=== PATIENT | male | born 1990 | race Two or more races ===

== ENCOUNTER 2018-03-13 11:39 | Outpatient (CLI) | payer OTHER ==
[~2018-03-13 11:39] MED LIST: ADDERALL 20 MG20 MG; BUDEPRION XL300 MG; SYNTHROID50 MCG
== END 2018-03-13 11:41 | disposition home or self-care (01) ==
LOC: SONOGRAMA 11:39
DX: E04.2 Nontoxic multinodular goiter (principal)

== ENCOUNTER 2018-04-16 09:14 | Outpatient (CLI) | payer OTHER ==
[~2018-04-16] VITALS: Ht 170.2 cm; Wt 95.3 kg
[2018-04-23] MEDS ORDERED: CALCIUM 500 +1 EAC2 PO (08:49)
[2018-04-23] MEDS ORDERED: CALCITRIOL0.25 MCG PO (08:50)
== END 2018-04-16 09:30 | disposition home or self-care (01) ==
LOC: OFIC 805 09:14
DX: J31.0 Chronic rhinitis (principal); R22.1 Localized swelling, mass and lump, neck; J34.2 Deviated nasal septum; C73 Malignant neoplasm of thyroid gland

== ENCOUNTER 2018-04-18 10:00 | Inpatient (IN) | payer OTHER ==
[~2018-04-18] VITALS: Ht 175.3 cm; Wt 95.3 kg
[2018-04-18] MEDS ORDERED: IRBESARTAN75 MG PO (14:22)
[2018-04-23] MEDS ORDERED: CALCIUM 500 +1 EAC2 PO ×2 (08:49)
[2018-04-23] MEDS ORDERED: CALCITRIOL0.25 MCG PO ×2 (08:50)
== END 2018-04-24 09:44 | disposition home or self-care (01) | DRG 626 ==
LOC: O/R 04-22 05:45 → SURG 04-22 05:45 → RECOVERY 04-22 07:00 → SURH 04-22 15:23 → SURG 04-22 16:22
PROVIDERS: ADMIT Otolaryngology
PROC: 07T10ZZ Resection of Right Neck Lymphatic, Open Approach (ICD-10-PCS; 2018-04-22)
PROC: 01Q Peripheral Nervous System, Repair (ICD-10-PCS; 2018-04-22)
PROC: 0GTK0ZZ Resection of Thyroid Gland, Open Approach (ICD-10-PCS; principal; 2018-04-22 07:00)
DX: C73 Malignant neoplasm of thyroid gland (principal); F84.5 Asperger's syndrome; G97.49 Accidental puncture and laceration of other nervous system organ or structure during other procedure; E20.8 Other hypoparathyroidism

== ENCOUNTER 2018-04-30 10:11 | Outpatient (CLI) | payer OTHER ==
[~2018-04-30] VITALS: Ht 152.4 cm; Wt 95.3 kg
[~2018-04-30 10:11] MED LIST changes: +CALCITRIOL0.25 MCG PO; +CALCIUM 500 +1 EAC2 PO; +IRBESARTAN75 MG PO
[2018-04-30] MEDS ORDERED: CALCITRIOL0.5 MCG PO ×2 (12:03)
== END 2018-04-30 10:30 | disposition home or self-care (01) ==
LOC: OFIC 805 10:11
DX: E20.8 Other hypoparathyroidism (principal); E83.51 Hypocalcemia; C73 Malignant neoplasm of thyroid gland; J31.0 Chronic rhinitis

== ENCOUNTER 2018-06-04 13:28 | Outpatient (CLI) | payer OTHER ==
[~2018-06-04 13:28] MED LIST changes: +CALCITRIOL0.5 MCG PO
[2018-06-18] MEDS ORDERED: CALCITRIOL0.5 MCG PO (12:00)
[2018-06-18] MEDS ORDERED: CALCIUM 500 +1 EAC2 PO (12:00)
== END 2018-06-04 14:00 | disposition home or self-care (01) ==
LOC: NUCLEAR 13:28
DX: C73 Malignant neoplasm of thyroid gland (principal); E89.0 Postprocedural hypothyroidism
CPT/HCPCS: 79005; A9517

== ENCOUNTER 2018-06-11 13:12 | Outpatient (CLI) | payer OTHER | END 2018-06-11 14:00 | disposition home or self-care (01) | LOC: NUCLEAR 13:12 | DX: C73 Malignant neoplasm of thyroid gland (principal); E89.0 Postprocedural hypothyroidism ==

== ENCOUNTER 2018-06-18 09:39 | Outpatient (CLI) | payer OTHER ==
[~2018-06-18] VITALS: Ht 152.4 cm; Wt 95.3 kg
[2018-06-18] MEDS ORDERED: CALCITRIOL0.5 MCG PO ×2 (12:00)
[2018-06-18] MEDS ORDERED: CALCIUM 500 +1 EAC2 PO ×2 (12:00)
== END 2018-06-18 10:00 | disposition home or self-care (01) ==
LOC: OFIC 805 09:39
DX: J38.00 Paralysis of vocal cords and larynx, unspecified (principal); E20.9 Hypoparathyroidism, unspecified; E83.51 Hypocalcemia; J31.0 Chronic rhinitis; C73 Malignant neoplasm of thyroid gland

== ENCOUNTER 2018-08-06 10:55 | Outpatient (CLI) | payer OTHER ==
[~2018-08-06] VITALS: Ht 152.4 cm; Wt 93.0 kg
== END 2018-08-06 11:10 | disposition home or self-care (01) ==
LOC: OFIC 805 10:55
DX: R49.0 Dysphonia (principal); E83.51 Hypocalcemia; E20.8 Other hypoparathyroidism; C73 Malignant neoplasm of thyroid gland

== ENCOUNTER 2018-12-03 09:46 | Outpatient (CLI) | payer OTHER ==
[~2018-12-03] VITALS: Ht 152.4 cm; Wt 90.7 kg
== END 2018-12-03 10:00 | disposition home or self-care (01) ==
LOC: OFIC 805 09:46
DX: J38.01 Paralysis of vocal cords and larynx, unilateral (principal); R49.0 Dysphonia; J34.2 Deviated nasal septum; J31.0 Chronic rhinitis; C73 Malignant neoplasm of thyroid gland

== ENCOUNTER 2019-03-09 07:52 | Outpatient (CLI) | payer OTHER | END 2019-03-09 07:55 | disposition home or self-care (01) | LOC: RAD 07:52 | DX: N20.0 Calculus of kidney (principal) ==

== ENCOUNTER 2019-06-12 13:04 | Outpatient (CLI) | payer OTHER | END 2019-06-12 14:00 | disposition home or self-care (01) | LOC: NUCLEAR 13:04 | DX: C73 Malignant neoplasm of thyroid gland (principal) | CPT/HCPCS: 78020; 78018; A9528 ==

== ENCOUNTER → 2022-03-12 12:00 | Outpatient (CLI) | payer OTHER | END | disposition home or self-care (01) | LOC: SONOGRAMA 12:00 | PROVIDERS: ATTEND Pathology Anatomic Pathology & Clinical Pathology | DX: C73 Malignant neoplasm of thyroid gland (principal); E89.0 Postprocedural hypothyroidism ==

== ENCOUNTER 2022-04-30 07:11 | Outpatient (CLI) | payer OTHER | END 2022-04-30 07:13 | disposition home or self-care (01) | LOC: NUCLEAR 07:11 | PROVIDERS: ATTEND Otolaryngology | DX: C73 Malignant neoplasm of thyroid gland (principal); C77.0 Secondary and unspecified malignant neoplasm of lymph nodes of head, face and neck | CPT/HCPCS: 78816; A9552 ==

== ENCOUNTER 2022-05-07 07:25 | Outpatient (CLI) | payer OTHER | END 2022-05-07 07:42 | disposition home or self-care (01) | LOC: TOM 07:25 | PROVIDERS: ATTEND Otolaryngology | DX: C73 Malignant neoplasm of thyroid gland (principal); C77.0 Secondary and unspecified malignant neoplasm of lymph nodes of head, face and neck ==